=== PATIENT | male | born 1935 | race Hispanic/Latino ===

== ENCOUNTER 2016-10-22 05:59 | Inpatient (IN) | payer MEDICARE, OTHER ==
--- NOTE | 2016-10-17 11:30 | Anesthesia Consultation ---
Anesthesia Consult and Med Hx Date of service: 10/22/16 - Airway Anesthetic Teeth Evaluation: Dentures ROM Head & Neck: Adequate Mental/Hyoid Distance: Adequate Mallampati Class: Class II Intubation Access Assessment: Good - Pulmonary Exam CTA: Yes - Cardiac Exam Cardiac Exam: RRR - Pre-Operative Health Status ASA Pre-Surgery Classification: ASA3 Proposed Anesthetic Plan: Epidural - Pulmonary Hx Smoking: Yes - Cardiovascular System Hx Hypertension: Yes
[~2016-10-22 05:59] MED LIST: VERSED IV NR
[2016-10-22] MEDS ORDERED: ANCEF/STERILE WATER 2 GM/20 ML 20 ML IV NR (06:00)
[2016-10-22] MEDS ORDERED: VERSED IV NR (06:00)
[2016-10-22] MEDS ORDERED: LACTATED RINGERS 1,000 ML IV SCH (06:00)
[2016-10-22] MEDS ORDERED: NACL BACTERIOSTATIC INFILTRATI ONE (06:17)
--- NOTE | 2016-10-22 07:11 | Anesthesia Day of Surgery ---
Anesthesia Day of Surgery - Day of Surgery Patient Examined: Yes Patient H&P Reviewed: Yes Patient is NPO: Yes Beta Blockers: Yes Cardiac Clearance: Yes
[2016-10-22] MEDS ORDERED: ZEMURON IV ONE (07:14)
[2016-10-22] MEDS ORDERED: XYLOCAINE MPF 2% ONE (07:14)
[2016-10-22] MEDS ORDERED: SUBLIMAZE ONE (07:15)
[2016-10-22] MEDS ORDERED: DIPRIVAN 10 MG/ML IV ONE (07:16)
[2016-10-22 07:23] LABS: INR 1.19 (0.87-1.13)
[2016-10-22] MEDS ORDERED: NACL 0.9% 1000 ML ONE (08:00)
[2016-10-22] MEDS ORDERED: HEPARIN 10,000 UNITS/10 ML ONE (08:00)
[2016-10-22] MEDS ORDERED: WATER FOR INJ (PF) ONE (08:00)
[2016-10-22] MEDS ORDERED: ePHEDrine SULFATE ONE (08:18)
[2016-10-22] MEDS ORDERED: NACL 0.9% IR ONE (08:45)
[2016-10-22] MEDS ORDERED: HEPARIN 10,000 UNITS/10 ML 4,000 UNIT in NACL 0.9% 1000 ML 1,000 ML IR ONE (08:45)
[2016-10-22] MEDS ORDERED: DILAUDID IV PRN (09:15)
[2016-10-22] MEDS ORDERED: BLOXIVERZ ONE (09:19)
[2016-10-22] MEDS ORDERED: DECADRON ONE (09:19)
[2016-10-22] MEDS ORDERED: ROBINUL ONE (09:19)
[2016-10-22] MEDS ORDERED: ZOFRAN ONE (09:19)
[2016-10-22] MEDS ORDERED: MARCAINE 0.5% INFILTRATI ONE (09:30)
[2016-10-22] MEDS ORDERED: NEO SYNEPHRINE ONE (09:44)
--- NOTE | 2016-10-22 09:50 | Operative Report ---
Operative Report Operative Report: Date of procedure: 10/22/2016 Pre-operative diagnosis: Left groin swollen mass Post-operative diagnosis: Groin fluid collection. Procedure name(s): 1. Left groin exploration. 2. Evacuation of fluid collection. 3. Resection of fluid capsule. 4. Sartorius muscle flap over the anastomosis. Surgeon: De Kilpatrick MD, [facility] Actuary: Rodrigo Mcwilliams M.D. Anesthesia: Gen. Findings 1. Well incorporated left limb of aortobifemoral bypass graft. 2. Left groin fluid collection that is murky but not clearly purulent. 3. Inflamed fluid capsule. 4. Sartorius muscle over the graft with no tension. Specimens: Left groin fluid. Left groin fluid capsule. Both for cultures. EBL: 30 cc IV fluids: 1 L Urine output: 500 mL Disposition: The recovery Indications: Left groin mass suspicious for false aneurysm or hematoma. Procedure: Patient was brought to the operating room laid on the operating table in supine position. After general tracheal anesthesia was achieved patient was prepped draped in usual sterile fashion. Suprainguinal left groin incision was made transversely. Subcutaneous tissue was divided with Bovie electrocautery. The external oblique aponeurosis was divided sharply with knife. The preperitoneal space was entered by sweeping the preperitoneal contents medially and cephalad. The left limb of aortobifemoral bypass was located. It was found to be well incorporated. It was dissected enough to be able to put a clamp on should one needed. Then, the incision was made below the groin collection using #15 blade. Subcutaneous tissue was divided with Bovie electrocautery. The superficial femoral artery was dissected free and circled with a vessel loop. The incision continued cephalad. It was finally made over the collection. A murky fluid drained out. No blood was seen. The fluid was collected for cultures. The capsule was then dissected free and completely excised. Then anastomosis was found to be well incorporated with no evidence of infection or false aneurysm. No evidence of graft infection or arterial infection was seen. The decision was made not to replace the anastomosis given the fact there was no evidence of infection. The sartorius muscle was then mobilized from lateral to medial and brought over the anastomosis 2-0 Vicryl interrupted sutures without tension. The lower wound was closed using 2-0 Vicryl, 3-0 Vicryl and jay. The external oblique aponeurosis was approximated without tension using 2-0 Vicryl sutures the subcutaneous tissue was closed with 3-0 Vicryl sutures and the skin was closed with Monocryl. Patient received about 8 mL of Marcaine in both incisions prior to closure. At the end of the case all instrument sponge and needle counts were correct. Patient tolerated procedure well.
[2016-10-22] MEDS ORDERED: ZOFRAN IV PRN (09:51)
[2016-10-22] MEDS ORDERED: MORPHINE IV PRN (09:51)
[2016-10-22] MEDS ORDERED: TYLENOL PO PRN (09:51)
[2016-10-22] MEDS ORDERED: LUTEIN 10 MG PO SCH (10:00)
[2016-10-22] MEDS ORDERED: MILK OF MAGNESIA PO PRN (10:00)
--- NOTE | 2016-10-22 10:40 | Admit Criteria Form ---
Admission Criteria Documentation: AMBULATORY SURGERY EXCEPTION CRITERIA Ambulatory Surgery Exception Criteria ( Place 'X' for any and all applicable criteria): Surgery or procedure performed on ambulatory basis may require inpatient stay for[A] ANY ONE of the following(1)(2)(3)(4)(5)(6)(7)(8)(9): [X] I. A preoperative situation, condition, or finding that warrants inpatient stay as indicated by ANY ONE of the following: [] a) Inpatient care needed because of severity of a disease or condition rather than the surgery (eg, severe cardiac or respiratory disease, severe infection) (15) (16 ) (17) (18) [] b) Emergent procedure (eg, angioplasty for acute ischemia)(19) [] c) Complex surgical approach or situation as indicated by ANY ONE of the following(3): [] i) Open approach needed instead of usual endoscopic, transcatheter, or other less invasive procedure [] ii) Difficult approach because of previous operation [] iii) Airway monitoring required after open neck procedures(20)(21) [] iv) Large mass requiring unusually extensive dissection [] v) Additional complicating feature requiring inpatient care (eg, drain management)(22(23): [X] d) Major surgery in a pt with high anesthetic risk as indicated by ANY ONE of the following (2)(3)(5)(7)(8): [X] i) ASA risk class III or higher (severe systemic disease impairing function) [D] [] ii) Advanced age (eg, older than 85 years)(14)(24) [] iii) Symptomatic heart failure(25) [] iv) Symptomatic asthma or COPD(8)(21) [] v) Morbid obesity with hemodynamic or respiratory problems(20)( 21)(26)(27) [] vi) Obstructive sleep apnea(20)(21) [] vii) Former premature infants who are younger than 60 weeks [] viii) High risk for severe postoperative abnormalities (eg, severe postoperative hypocalcemia after parathyroidectomy for severe hyperparathyroidism)(27)( 28) [] ix) Unstable angina(25) [] e) Drug-related risk requiring inpatient stay as indicated by ANY ONE of the following(5)(10)(14)(32)(33) [] i) Procedure requires discontinuing drugs or other therapy (eg , antiarrhythmic medication, antiseizure medication), which necessitates inpatient observation or treatment.(18)(31) [] ii) Major surgery and high risk drug use as indicated by ANY ONE of the following: [] 1) Active abuse of cocaine or similar drug [] 2) Monoamine oxidase inhibitor use [] 3) Other drug identified as posing risk [] f) Inadequate outpatient care situation as indicated by ANY ONE of the following(5)(10)(14)(32)(33) [] i) Patient lives remote from medical facility and procedure has urgent complication potential, and temporary nearby residence cannot be arranged [] ii) Patient will have postprocedure incapacitation and inadequate assistance at home, or alternative level of care cannot be arranged. [] iii) Patient will have long general anesthesia or procedure side effect resolution time, and competent person to stay with patient on first postoperative night at home or alternative level of care cannot be arranged. []iv) Other inadequate outpatient situation that cannot be handled by other means [] II. A perioperative event, condition, or finding that warrants inpatient stay as indicated by ANY ONE of the following (1)(2)(3): [] a) Inadequate physiologic recovery: cardiovascular, respiratory, or hemodynamic status not normal or near preoperative baseline(18) [] b) Hemodynamic instability [] c) Patient not alert with near normal or baseline mental status [] d) Temperature not normal or as expected and not appropriate for outpatient treatment of condition [] e) Ambulatory or appropriate activity level status not yet achieved post procedure [E](34)(35)(36) [] f) Operative site not appropriate (eg, unexpected or excessive drainage or bleeding) [] g) Postoperative effects not resolved or adequately managed (eg, significant pain or vomiting not appropriate for outpatient or next level of care)(10)(12) [] h) Complicating features requiring inpatient care as indicated by ANY ONE of the following(37): [] i) Severe complications of procedure (eg, bowel injury, airway compromise, vascular injury,severe hemorrhage) [] ii) Extensive (eg, dissection far beyond usual scope of procedure ) or prolonged (eg, 120 minutes beyond usual) surgery needed requiring inpatient postoperative care [] iii) Conversion to an open or complex procedure that requires inpatient care (eg, open vs laparoscopic cholecystectomy, abdominal vs vaginal hysterectomy)(38) [] iv) Comorbid condition or test result identified during or post procedure that requires inpatient care (7) [] v) Malignant hyperthermia(30) [] vi) Other complicating feature requiring inpatient care(22)(23) Inpatient stay may be needed until ALL of the following are present (1)(2)(3)(4) (5)(6)(10)(14)(33)(40): []a) Physiologic recovery: cardiovascular, respiratory, and hemodynamic status normal or near preoperative baseline []b) Hemodynamic stability []c) Patient alert, with near normal or baseline mental status []d) Temperature appropriate: patient afebrile or temperature appropriate for outpt treatment of condition []e) Activity level appropriate: ambulatory or appropriate activity level post procedure []f) Operative site appropriate as indicated by ALL of the following: []i) Site dry or with expected drainage []ii) Any blood noted is as expected for procedure. []g) Postoperative effects resolved or managed as indicated by ALL of the following: []i) Pain management appropriate for outpatient (or next level of) care(10) []ii) Minimal nausea and vomiting: if present, successfully treated with oral medication(12) []iii) Headache, dizziness, or drowsiness (if present) are mild. []h) Voiding status acceptable as indicated by ANY ONE of the following: []i) Voiding spontaneously []ii) No voiding but instructions given for follow-up in 6 to 8 hours []iii) Urinary catheter in place, and instructions given for follow-up []i) Complicating features requiring inpatient care manageable at a lower level of care(37) []j) Comorbid conditions manageable at a lower level of care(37) The original [employer] content created by [employer] has been revised. The portions of the content which have been revised are identified through the use of italic text or in bold, and [facility] [employer] has neither reviewed nor approved the modified material. All other unmodified content is copyright [employer] Please see references footnoted in the original [employer] edition 2016 Admission Criteria Met: Yes
[2016-10-22] MEDS ORDERED: DULCOLAX PR PRN (11:00)
[2016-10-22] MEDS: D5/0.45NS 1,000 ML IV SCH ×2 (12:30→22:24)
[2016-10-22] MEDS ORDERED: ANCEF/NS 1 GM/50 ML 50 ML IV SCH (16:00)
--- NOTE | 2016-10-22 17:42 | Consultation ---
History of Present Illness - Reason for Consult Consult date: 10/22/16 left groin infection Requesting physician: KEILA KILPATRICK - History of Present Illness This is an 81 year old man with BPH, CAD s/p cardiac stenting and abdominal aortic aneurysm s/p repair in 2007. Patient reports that he has been getting yearly ultrasounds to evaluate the aneurysm, he reports that bilateral femoral bypass was done as well. He was doing fine until 2-3 months ago he felt a lump in his left groin. He was admitted at [facility] in September for chest pain , while he was there he was seen by Dr. Kilpatrick who was concerned about a possible left groin mass. Patient then seen in the office and it was decided to schedule surgery for 10/22/16. patient underwent left groin exploration, evacuation of fluid collection, and resection of the fluid capsule. Findings included well incorporated left limb of aortobifemoral bypass graft, left groin fluid collection that is murky but no purulence, and inflamed fluid capsule. Patient said he has not been experiencing fevers or chills. Infectious disease consult was called to evaluate Past History Past Medical History: CAD Past Surgical History: appendectomy, abd. aortic aneurysm repair, Other ( cardiac stent) Social history: . denies: smoking (quit many years ago), alcohol abuse Family history: no significant family history Medications and Allergies Allergies Allergy/AdvReac Type Severity Reaction Status Date / Time No Known Allergies Allergy Unverified 10/15/16 10:25 Home Medications Medication Instructions Recorded Confirmed Last Taken Type Aspirin [Adult Low Dose Aspirin EC] 81 mg PO DAILY 10/15/16 10/15/16 Unknown History Ergocalciferol (Vitamin D2) 2,000 unit PO DAILY 10/15/16 10/22/16 10/21/16 09: 00 History [Vitamin D2] Ezetimibe [Zetia] 10 mg PO QDAY 10/15/16 10/15/16 Unknown History Lutein 10 mg PO DAILY 10/15/16 10/22/16 10/21/16 09:00 History Mv,Ca,Min/Iron Fum/FA/Lyco/Lut 1 each PO DAILY 10/15/16 10/22/16 10/21/16 09:00 History [Complete Multi Tablet] Pramipexole Di-HCl [Pramipexole ER] 2.25 mg PO DAILY 10/15/16 10/22/16 10/21/16 12:00 History traMADol [Ultram] 50 mg PO Q8HR PRN 10/15/16 10/15/16 Unknown History Primidone [Mysoline] 50 mg PO TID 10/22/16 10/22/16 10/22/16 04:00 History Active Meds: Active Medications Acetaminophen (Tylenol) 650 mg PO Q4H PRN PRN Reason: Pain MILD(1-3)/Fever >100.5/MCKEON Acetaminophen/Hydrocodone Bitart (Aiken 5/325) 2 each PO Q6H PRN PRN Reason: Pain, Moderate (4-6) Aspirin (Halfprin Ec) 81 mg PO DAILY TALITA Bisacodyl (Dulcolax) 10 mg ME QDAY PRN PRN Reason: Constipation unrelieved by MOM Ezetimibe (Zetia) 10 mg PO QDAY [facility] Enoxaparin Sodium (Lovenox) 40 mg SUB-Q QDAY [facility] Stop: 10/23/16 23:59 Hydromorphone HCl (Dilaudid) 0.5 mg IV Q10MIN PRN PRN Reason: Pain , Severe (7-10) Stop: 10/25/16 09:16 Last Admin: 10/22/16 10:50 Dose: 0.5 mg Lactated Ringer's (Lactated Ringers) 1,000 mls @ 100 mls/hr IV DIRECT TALITA Last Admin: 10/22/16 06:56 Dose: 100 mls/hr Cefazolin Sodium (Ancef/Sterile Water 2 Gm/20 Ml) 20 mls @ 80 mls/hr IV PREOP NR PRN Reason: Protocol Stop: 10/22/16 23:59 Cefazolin Sodium (Ancef/Ns 1 Gm/50 Ml) 50 mls @ 100 mls/hr IV Q8H TALITA PRN Reason: Protocol Dextrose/Sodium Chloride (D5/0.45ns) 1,000 mls @ 75 mls/hr IV DIRECT TALITA Last Admin: 10/22/16 12:30 Dose: 75 mls/hr Magnesium Hydroxide (Milk Of Magnesia) 30 ml PO Q4H PRN PRN Reason: Constipation Midazolam HCl (Versed) 2 mg IV PREOP NR Stop: 10/22/16 23:59 Last Admin: 10/22/16 07:15 Dose: 2 mg Miscellaneous Medication (Ergocalciferol (Vitamin D2) [Vitamin D2]) 2,000 unit PO DAILY [facility] Miscellaneous Medication (Lutein [Lutein]) 10 mg PO DAILY [facility] Miscellaneous Medication (Mv,Ca,Min/Iron Fum/Fa/Lyco/Lut [Complete Multi Tablet] ) 1 each PO DAILY [facility] Miscellaneous Medication (Pramipexole Di-Hcl [Pramipexole Er]) 2.25 mg PO DAILY [facility] Morphine Sulfate (Morphine) 1 mg IV Q1H PRN PRN Reason: Pain , Severe (7-10) Ondansetron HCl (Zofran) 4 mg IV Q8H PRN PRN Reason: N/V unrelieved by Reglan Primidone (Mysoline) 50 mg PO TID [facility] Review of Systems Constitutional: no weight gain, no fever, no chills, no fatigue Ears, nose, mouth and throat: no ear pain, no ear discharge, no dental pain, no mouth pain Cardiovascular: no orthopnea, no palpitations, no shortness of breath, no dyspnea on exertion Respiratory: no cough with sputum, no excessive sputum, no wheezing, no pleurisy Gastrointestinal: no nausea, no vomiting, no diarrhea, no melena, no hematochezia, no loss of appetite Genitourinary Male: no hematuria, no flank pain Rectal: no pain, no incontinence Musculoskeletal: no neck pain, no shooting arm pain, no morning stiffness, no muscle weakness Integumentary: no rash, no pruritis, no sores, no lesions Neurological: no paralysis, no weakness, no headaches, no migraines Psychiatric: no memory loss, no sleep disturbances, no disorientation, no hallucinations Endocrine: no excessive thirst, no flushing, no weight change Physical Examination - Constitutional Vitals: Selected Entries 10/22/16 10/22/16 12:00 16:13 Temperature 97.2 F L 97.4 F L Pulse Rate [ 68 Right Radial] Respiratory 18 Rate O2 Sat by Pulse 95 Oximetry Blood Pressure 123/61 [Right Arm] Blood Pressure 81 Mean [Right Arm ] General appearance: Present: no acute distress, well-nourished - EENT Eyes: Present: PERRL, EOM intact. Absent: scleral icterus, conjunctival injection ENT: hearing intact, clear oral mucosa, dentition normal - Neck Neck: Present: supple, normal ROM - Respiratory Respiratory effort: normal Respiratory: bilateral: CTA - Cardiovascular Rhythm: regular Heart Sounds: Present: S1 & S2 - Extremities Extremities: no ischemia, pulses intact, No edema, normal temperature Peripheral Pulses: within normal limits - Abdominal General gastrointestinal: Present: soft, non-tender, normal bowel sounds Male genitourinary: Present: deferred - Rectal Rectal Exam: deferred - Integumentary Integumentary: Present: clear, warm, dry. Absent: jaundice, rash, clammy - Musculoskeletal Musculoskeletal: strength equal bilaterally - Psychiatric Psychiatric: appropriate mood/affect, cooperative - Additional findings Additional findings: left groin surgical bandages in place Results - Labs Labs: Microbiology 10/22/16 Unknown Groin Surgical Culture - Preliminary Laboratory Tests 10/22/16 06:30 INR 1.19 H Assessment and Plan Antibiotics: Cefazolin preop This is an 81 year old man with CAD, Abdominal aortic aneurysm repair in 2007 presenting here for a planned exploration of the left groin mass. Found to have left groin fluid collection surrounding the well incorporated aortobifemoral bypass graft. Infectious disease was called to evaluate 1) left groin fluid collection in an area of femoral bypass, no gross infection seen. possible abscess. Fluid sent for culture, will treat empirically until results are back 2) Abdominal aorta repair in 2007 Plan: 1) start unasyn 3gm iv Q8H 2) follow up intra-operative culture 3) obtain CRP, BMP, CBC
[2016-10-22 20:46] LABS: Anion Gap 17 mmol/L; Blood Urea Nitrogen 16 mg/dL (9-20); Calcium 8.3 mg/dL (8.4-10.2); Carbon Dioxide 26 mmol/L (22-30); Chloride 104.9 mmol/L (98-107); Glucose 142 mg/dL (75-100); Potassium 4.5 mmol/L (3.6-5.0); Sodium 143 mmol/L (137-145)
[2016-10-22] MEDS ORDERED: HEPARIN SUB-Q SCH (22:00)
[2016-10-22] MEDS ORDERED: PRAMIPEXOLE DI HCL 2.25 MG PO SCH (22:00)
[2016-10-22] MEDS: UNASYN/NS 3 GM/100 ML 100 ML IV SCH (22:24)
[2016-10-23] MEDS: UNASYN/NS 3 GM/100 ML 100 ML IV SCH ×3 (05:15→21:19)
[2016-10-23 09:25] LABS: Basophils % (Auto) 0.5 % (0.0-1.8); Eosinophils % (Auto) 0.8 % (0.0-4.3); Hematocrit 37.8 % (35.5-45.6); Hemoglobin 12.5 gm/dl (11.8-15.2); Mean Corpuscular HGB Conc 33 % (32-34); Mean Corpuscular Hemoglobin 31 pg (28-32); Mean Corpuscular Volume 94 fl (84-94); Platelet Count 175 K/mm3 (140-440); Red Blood Count 4.03 M/mm3 (3.65-5.03); Red Cell Distribution Width 13.8 % (13.2-15.2)
[2016-10-23] MEDS ORDERED: LOVENOX SUB-Q SCH (10:00)
[2016-10-23] MEDS ORDERED: HEPARIN SUB-Q SCH (10:00)
[2016-10-23] MEDS: VITAMIN D3 PO SCH (10:11)
[2016-10-23] MEDS: HALFPRIN EC PO SCH (10:12)
[2016-10-23] MEDS: THERAGRAN Tab PO SCH (10:13)
[2016-10-23] MEDS: ZETIA PO SCH (10:14)
[2016-10-23] MEDS: NORCO 5/325 PO PRN (10:15)
--- NOTE | 2016-10-23 15:43 | Progress Note ---
Assessment and Plan Postoperative day 1. Status post left groin incision and drainage of fluid collection from the area of the left limb overt about femoral bypass graft and sartorius muscle flap. The wound is stable. The cultures are negative for 24 hours. Arias had to be reinserted yesterday. Plan: Continue Unasyn as per ID. Discussed the case was ID today. Even if the cultures are negative will most likely cover empirically for about 6 months. ROGERS nunez. Subjective Date of service: 10/23/16 Principal diagnosis: status post drainage of the fluid collection from site of the graft Interval history: No complaints today Objective - Exam Narrative Exam: Groin dressing clean and dry. - Constitutional Vitals: Vital Signs - 12hr 10/23/16 10/23/16 10/23/16 04:00 08:12 08:31 Temperature 98.6 F 98.0 F Pulse Rate [ 73 77 Left Radial] Respiratory 18 18 Rate Blood Pressure 109/57 110/56 [Left Arm] O2 Sat by Pulse 95 94 95 Oximetry 10/23/16 12:08 Temperature 98.0 F Pulse Rate [ 58 L Left Radial] Respiratory 18 Rate Blood Pressure 113/59 [Left Arm] O2 Sat by Pulse 93 Oximetry - Labs CBC & Chem 7: 10/23/16 09:14 10/22/16 20:03 Labs: Abnormal lab results 10/22/16 10/23/16 Range/Units 20:03 09:14 Seg Neutrophils % 74.5 H (40.0-70.0) % Glucose 142 H (75-100) mg/dL Calcium 8.3 L (8.4-10.2) mg/dL
--- NOTE | 2016-10-23 17:14 | Progress Note ---
Assessment and Plan Antibiotics: Unasyn 3 g IV every 8 hour ( 10/22 -> Vancomycin IV ( 10/23 - > s/p Cefazolin preop This is an 81 year old man with CAD, Abdominal aortic aneurysm repair in 2007 presenting here for a planned exploration of the left groin mass. Found to have left groin fluid collection surrounding the well incorporated aortobifemoral bypass graft. Infectious disease was called to evaluate 1) left groin fluid collection in an area of femoral bypass, no gross infection seen. possible abscess. Fluid sent for culture, will treat empirically until results are back -CRP 1.0 2) Abdominal aorta repair in 2007 Plan: 1) continue unasyn 3gm iv Q8H; Tx with IV vancomycin as well. 2) follow up intra-operative culture ( negative at 24Hr) 3) follow clinically. Subjective Date of service: 10/23/16 Principal diagnosis: status post drainage of the fluid collection from site of the graft Interval history: No specific complaints. Denies left leg pain. Objective - Exam Narrative Exam: Alert. No distress. HEENT: Pupils are equal reactive to light and accommodation. Conjunctiva clear. Oropharynx is normal with no evidence of oral candidiasis or pharyngitis. NECK: Supple. No enlargement of the thyroid gland. No significant cervical lymphadenopathy. No jugular venous distention at 30. LUNGS: Clear with no adventitious sounds. HEART: Regular rate. S1 and S2 are normal. Soft systolic murmur along the left sternal border. ABDOMEN: Soft and nontender. Liver and spleen are not palpably enlarged or tender. No palpable masses. Bowel sounds are normoactive. EXTREMITIES: Left groin dressings in place. No surrounding redness. Left distal leg and foot without swelling or redness. SKIN: No other rash, ulcers or wounds. NEUROLOGIC: No focal findings. - Constitutional Vitals: Vital Signs Temp Pulse Resp BP Pulse Ox 98.0 F 63 18 123/62 96 10/23/16 15:46 10/23/16 15:46 10/23/16 15:46 10/23/16 15:46 10/23/16 15:46 Temperature -Last 24 Hours Temperature 98.0 F Temperature 98.0 F Temperature 98.0 F Temperature 98.6 F Temperature 98.3 F Temperature 97.6 F - Labs CBC & Chem 7: 10/23/16 09:14 10/22/16 20:03 Labs: Abnormal lab results 10/22/16 10/23/16 Range/Units 20:03 09:14 Seg Neutrophils % 74.5 H (40.0-70.0) % Glucose 142 H (75-100) mg/dL Calcium 8.3 L (8.4-10.2) mg/dL
[2016-10-23] MEDS ORDERED: VANCOMYCIN/NS 1 GM/250 ML 250 ML IV ONE (17:15)
[2016-10-23] MEDS: MYSOLINE PO SCH ×2 (17:31→21:17)
[2016-10-23] MEDS: D5/0.45NS 1,000 ML IV SCH (17:33)
[2016-10-23] MEDS: PRAMIPEXOLE DI HCL 0.5 MG PO SCH (21:18)
[2016-10-24] MEDS: NORCO 5/325 PO PRN (03:35)
[2016-10-24] MEDS: UNASYN/NS 3 GM/100 ML 100 ML IV SCH ×3 (05:44→21:26)
[2016-10-24] MEDS: VANCOMYCIN VIAL 1,250 MG in NACL 0.9% 250ML 250 ML IV SCH ×2 (07:00→18:05)
[2016-10-24] MEDS: MYSOLINE PO SCH ×3 (09:23→20:00)
[2016-10-24] MEDS: HALFPRIN EC PO SCH (09:23)
[2016-10-24] MEDS: VITAMIN D3 PO SCH (09:23)
[2016-10-24] MEDS: ZETIA PO SCH (09:24)
[2016-10-24] MEDS: THERAGRAN Tab PO SCH (09:24)
--- NOTE | 2016-10-24 11:19 | Progress Note ---
Assessment and Plan Antibiotics: 1) unasyn 3gm iv Q8H (10/22 2)( vanocmycin (10/23 Previous Antibiotics: Cefazolin preop This is an 81 year old man with CAD, Abdominal aortic aneurysm repair in 2007 presenting here for a planned exploration of the left groin mass. Found to have left groin fluid collection surrounding the well incorporated aortobifemoral bypass graft. Infectious disease was called to evaluate 1) left groin fluid collection in an area of femoral bypass, no gross infection seen. possible abscess. Fluid sent for culture, will treat empirically until results are back --CRP 1.0, all cultures remain negative, if no growth will cover empirically for staph aureus and strep 2) Abdominal aorta repair in 2007 Plan: 1) continue unasyn 3gm iv Q8H 2) follow up intra-operative culture 3) continue vancomycin 4) will decide on outpatient antibiotics tomorrow, giving the culture 1 more day of growth Subjective Date of service: 10/24/16 Principal diagnosis: status post drainage of the fluid collection from site of the graft Interval history: Patient is without new complaints, he does not have groin pain Objective - Constitutional Vitals: Selected Entries 10/24/16 07:00 Temperature 98.2 F Pulse Rate [ 39 L Left Radial] Respiratory 20 Rate O2 Sat by Pulse 97 Oximetry Blood Pressure 111/59 [Left Arm] Blood Pressure 76 Mean [Left Arm] General appearance: Present: no acute distress, well-nourished - EENT Eyes: PERRL, EOM intact, no scleral icterus, no conjunctival injection Ears: bilateral: normal - Neck Neck: supple, normal ROM, no enlarged thyroid, no masses or JVD - Respiratory Respiratory effort: normal Respiratory: bilateral: CTA - Breasts Breasts: deferred - Cardiovascular Rhythm: regular Heart Sounds: Present: S1 & S2 Extremities: no ischemia, pulses intact, No edema - Gastrointestinal General gastrointestinal: Present: soft, non-tender, normal bowel sounds Rectal Exam: deferred - Genitourinary Male genitourinary: deferred - Integumentary Integumentary: clear, warm, dry, no jaundice, no rash - Musculoskeletal Musculoskeletal: strength equal bilaterally - Psychiatric Psychiatric: appropriate mood/affect, cooperative - Additional findings Additional findings: left groin with mild swelling, surgical dressings in place - Labs CBC & Chem 7: 10/23/16 09:14 10/22/16 20:03 Labs: Microbiology 10/22/16 Unknown Groin Surgical Culture - Preliminary 10/22/16 Unknown Groin Anaerobic Culture - Preliminary Laboratory Tests 10/22/16 10/23/16 20:03 09:14 WBC 10.0 Creatinine 0.8 Estimated GFR > 60
--- NOTE | 2016-10-24 16:39 | Progress Note ---
Assessment and Plan Await surgical culture results to direct antibiotic therapy per the infectious disease recommendations. Patient has underlying BPH. His Arias was removed postoperatively and required reinsertion due to urinary retention. It once again was removed last night at midnight, by this morning he voided minimally and was noted to have 800 mL of urine in his bladder by bladder scan. The Arias was replaced. We'll start Flomax. Patient will need to be discharged with a leg bag and follow-up with his urologist next week for reevaluation. Subjective Date of service: 10/24/16 Principal diagnosis: status post drainage of the fluid collection from site of the graft Interval history: Patient is awake and alert without specific complaint at present. Objective - Constitutional Vitals: Vital Signs - 12hr 10/24/16 10/24/16 07:00 11:00 Temperature 98.2 F 97.5 F L Pulse Rate [ 60 Dorsalis Pedis] Pulse Rate [ 39 L Left Radial] Respiratory 20 20 Rate Blood Pressure 111/59 127/68 [Left Arm] O2 Sat by Pulse 97 97 Oximetry General appearance: Present: no acute distress - EENT Eyes: EOM intact ENT: hearing intact - Neck Neck: supple - Respiratory Respiratory effort: normal Extremities: no ischemia, pulses intact, normal temperature, abnormal (with groin bandage removed, jay in place, no erythema or drainage appreciated.) - Neurologic Neurologic: no focal deficits - Psychiatric Psychiatric: appropriate mood/affect, intact judgment & insight, cooperative - Labs CBC & Chem 7: 10/23/16 09:14 10/22/16 20:03
[2016-10-24] MEDS: FLOMAX PO SCH (18:03)
[2016-10-24] MEDS: PRAMIPEXOLE DI HCL 0.5 MG PO SCH (21:21)
[2016-10-25] MEDS: D5/0.45NS 1,000 ML IV SCH (03:05)
[2016-10-25] MEDS: UNASYN/NS 3 GM/100 ML 100 ML IV SCH ×2 (05:12→13:51)
--- NOTE | 2016-10-25 09:21 | Progress Note ---
Assessment and Plan Antibiotics: 1) unasyn 3gm iv Q8H (10/22 2)( vanocmycin (10/23 Previous Antibiotics: Cefazolin preop This is an 81 year old man with CAD, Abdominal aortic aneurysm repair in 2007 presenting here for a planned exploration of the left groin mass. Found to have left groin fluid collection surrounding the well incorporated aortobifemoral bypass graft. Infectious disease was called to evaluate Pathology report: benign fibroadipose tissue with numerous macrophages, foreign body giant cells and hemorrhage 1) left groin fluid collection in an area of femoral bypass, no gross infection seen. possible abscess. Fluid sent for culture, will treat empirically until results are back --CRP 1.0, all cultures remain negative, if no growth will cover empirically for staph aureus and strep --in view of negative cultures, pathology report without guidance will treat empirically for suspected infection 2) Abdominal aorta repair in 2007 Plan: 1) continue unasyn 3gm iv Q8H and vancomycin while hospitalized 2) follow up intra-operative culture, negative 3) discharge home with doxycycline 100mg po Q12H, anticipate 3-6months of treatment in view of aortobifermoral bypass graft Subjective Date of service: 10/25/16 Principal diagnosis: status post drainage of the fluid collection from site of the graft Interval history: Patient is doing well, he has no new complaints. He is requesting to go home Objective - Constitutional Vitals: Selected Entries 10/25/16 10/25/16 08:00 08:59 Temperature 97.9 F Pulse Rate [ 50 L Dorsalis Pedis] Respiratory 18 Rate Blood Pressure 130/72 [Left Arm] Blood Pressure 91 Mean [Left Arm] General appearance: Present: no acute distress, well-nourished - EENT Eyes: PERRL, EOM intact, no scleral icterus, no conjunctival injection ENT: hearing intact, clear oral mucosa, dentition normal, no oropharyngeal erythema - Neck Neck: supple, normal ROM - Respiratory Respiratory effort: normal Respiratory: bilateral: CTA - Breasts Breasts: deferred - Cardiovascular Rhythm: regular Heart Sounds: Present: S1 & S2 Extremities: no ischemia, pulses intact, No edema, Full ROM - Gastrointestinal General gastrointestinal: Present: soft, non-tender, normal bowel sounds Rectal Exam: deferred - Genitourinary Male genitourinary: deferred - Integumentary Integumentary: clear, warm, dry - Musculoskeletal Musculoskeletal: strength equal bilaterally - Labs CBC & Chem 7: 10/23/16 09:14 10/22/16 20:03 Labs: Microbiology 10/22/16 Unknown Groin Surgical Culture - Preliminary 10/22/16 Unknown Groin Anaerobic Culture - Preliminary Laboratory Tests 10/22/16 10/22/16 10/23/16 06:30 20:03 09:14 WBC 10.0 INR 1.19 H Creatinine 0.8
[2016-10-25] MEDS: THERAGRAN Tab PO SCH (10:33)
[2016-10-25] MEDS: ZETIA PO SCH (10:33)
[2016-10-25] MEDS: FLOMAX PO SCH (10:33)
[2016-10-25] MEDS: VITAMIN D3 PO SCH (10:34)
[2016-10-25] MEDS: MYSOLINE PO SCH ×2 (10:34→13:50)
[2016-10-25] MEDS: HALFPRIN EC PO SCH (10:34)
[2016-10-25 13:32] VITALS: BP 139/66
--- NOTE | 2016-10-25 16:39 | Discharge Summary ---
Providers - Providers Date of Admission: 10/22/16 05:59 Date of discharge: 10/25/16 Attending physician: DE KILPATRICK 10/22/16 09:51 Consult to Physician [CONS] Routine Consulting Provider: MAGALI ANDERSON Reason For Exam: posible low level graft infection Place consult to:: Infectious disease Notified:: y Was contact made?: Yes If yes, spoke with:: Dr Anderson. Time called:: 10:00 Primary care physician: LEOPOLDO DE LEON Hospitalization Reason for admission: Mass at the left femoral aortobifemoral bypass site Condition: Stable Procedures: Date of procedure: 10/22/2016 Pre-operative diagnosis: Left groin swollen mass Post-operative diagnosis: Groin fluid collection. Procedure name(s): 1. Left groin exploration. 2. Evacuation of fluid collection. 3. Resection of fluid capsule. 4. Sartorius muscle flap over the anastomosis. Surgeon: De Kilpatrick MD, RPVI [facility] Therapist: Rodrigo Mcwilliams M.D. Anesthesia: Gen. Findings 1. Well incorporated left limb of aortobifemoral bypass graft. 2. Left groin fluid collection that is murky but not clearly purulent. 3. Inflamed fluid capsule. 4. Sartorius muscle over the graft with no tension. Specimens: Left groin fluid. Left groin fluid capsule. Both for cultures. EBL: 30 cc IV fluids: 1 L Urine output: 500 mL Disposition: The recovery Indications: Left groin mass suspicious for false aneurysm or hematoma. Procedure: Patient was brought to the operating room laid on the operating table in supine position. After general tracheal anesthesia was achieved patient was prepped draped in usual sterile fashion. Suprainguinal left groin incision was made transversely. Subcutaneous tissue was divided with Bovie electrocautery. The external oblique aponeurosis was divided sharply with knife. The preperitoneal space was entered by sweeping the preperitoneal contents medially and cephalad. The left limb of aortobifemoral bypass was located. It was found to be well incorporated. It was dissected enough to be able to put a clamp on should one needed. Then, the incision was made below the groin collection using #15 blade. Subcutaneous tissue was divided with Bovie electrocautery. The superficial femoral artery was dissected free and circled with a vessel loop. The incision continued cephalad. It was finally made over the collection. A murky fluid drained out. No blood was seen. The fluid was collected for cultures. The capsule was then dissected free and completely excised. Then anastomosis was found to be well incorporated with no evidence of infection or false aneurysm. No evidence of graft infection or arterial infection was seen. The decision was made not to replace the anastomosis given the fact there was no evidence of infection. The sartorius muscle was then mobilized from lateral to medial and brought over the anastomosis 2-0 Vicryl interrupted sutures without tension. The lower wound was closed using 2-0 Vicryl, 3-0 Vicryl and jay. The external oblique aponeurosis was approximated without tension using 2-0 Vicryl sutures the subcutaneous tissue was closed with 3-0 Vicryl sutures and the skin was closed with Monocryl. Patient received about 8 mL of Marcaine in both incisions prior to closure. At the end of the case all instrument sponge and needle counts were correct. Patient tolerated procedure well. 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 Patient was brought to the operating room and control was obtained of the aortobifemoral bypass, but after evaluation of the mass, it was determined to represent a fluid collection adjacent to the aortobifemoral bypass. It was drained. Cultures were obtained. Site was closed. Microbiological analysis demonstrates no growth at time of discharge. Infectious disease was consult and it was determined to place the patient on doxycycline for 6 months. The patient had inability to urinate requiring Arias placement 2, and finally required a Arias placement which will be kept upon discharge. Patient was started on Flomax. Patient will follow up with his urologist in 1 week at [facility]. Patient will follow up with infectious disease associates in 1-2 weeks. Patient will follow up with [facility] vascular associates in 1-2 weeks. Both of his limbs remain viable throughout his hospitalization and his left groin incision had minimal drainage. Disposition: DISCHARGED TO HOME OR SELFCARE Time spent for discharge: 45 min - Discharge Diagnoses (1) Fluid collection at surgical site Status: Acute (2) S/P aortobifemoral bypass surgery Status: Acute (3) Urinary (tract) obstruction Status: Acute Core Measure Documentation - Palliative Care Palliative Care/ Comfort Measures: Not Applicable - Core Measures Any of the following diagnoses?: none - VTE Discharge Requirements Deep Vein Thrombosis/Pulmonary Embolism Present on Admission: No Exam - Constitutional Vitals: Temp Pulse Resp BP Pulse Ox 97.9 F 73 18 139/66 96 10/25/16 12:00 10/25/16 12:00 10/25/16 12:00 10/25/16 12:00 10/25/16 12:00 General appearance: Present: no acute distress - EENT Eyes: Present: EOM intact ENT: hearing intact - Respiratory Respiratory effort: normal - Extremities Extremities: pulses intact (palpable pedal pulses), normal temperature, normal color Extremity abnormal: other (left groin c/d/i ; staple line intact) - Psychiatric Psychiatric: appropriate mood/affect, cooperative Plan Activity: advance as tolerated Weight Bearing Status: Weight Bear as Tolerated Diet: regular Wound: keep clean and dry, other (can let water wash over wound in shower, do not soak left groin in water) Prescriptions: Tamsulosin [Flomax] 0.4 mg PO QDAY #30 cap HYDROcodone/APAP 5-325 [[place] 5/325] 1 - 2 each PO Q6HR PRN #60 tablet PRN Reason: Pain Doxycycline [Vibramycin CAP] 100 mg PO BID #60 capsule
[2016-10-25] MEDS ORDERED: ULTRAM PO PRN (16:47)
--- NOTE | 2016-10-25 17:08 | Progress Note ---
Assessment and Plan consult dictated needs f/u dr elizabeth as out pt home with riggins to leg bag Subjective Date of service: 10/25/16 Principal diagnosis: status post drainage of the fluid collection from site of the graft,, AUR Objective - Constitutional Vitals: Vital Signs - 12hr 10/25/16 10/25/16 10/25/16 08:00 08:59 12:00 Temperature 97.9 F 97.9 F Pulse Rate [ 50 L 73 Dorsalis Pedis] Respiratory 18 18 18 Rate Blood Pressure 130/72 139/66 [Left Arm] O2 Sat by Pulse 94 96 Oximetry - Labs CBC & Chem 7: 10/23/16 09:14 10/22/16 20:03
--- NOTE | 2016-10-26 02:30 | Consultation ---
HISTORY OF PRESENT ILLNESS: The patient is an 81-year-old gentleman who has a history of prostatism. He has not seen Dr. Bailey in over a year and a half. He underwent cardiac stenting, abdominal aortic aneurysm repair in 2007, and he had swelling in the groin with inflammatory fluid filled mass which was drained and he had some sort of grafting with muscle flap. He is doing well, but postoperative catheter was removed at least twice, he could not void and a large residual was obtained. His urine is clear. PAST MEDICAL HISTORY: BPH, vascular disease. PAST SURGICAL HISTORY: Appendectomy, aortic aneurysm repair. FAMILY HISTORY: Noncontributory. SOCIAL HISTORY: Previous smoker years ago. ALLERGIES: Negative. MEDICATIONS: He is on Ultram, aspirin. REVIEW OF SYSTEMS: Weak flow, straining to void for quite some time, but did not follow up. PHYSICAL EXAMINATION: GENERAL: He is awake. He is in no distress. ABDOMEN: Soft, nondistended. No guarding or rebound. There is a left groin incision linear up and down, healing well with some mild ecchymosis. GENITALIA: Mildly atrophic testes. No hernias, uncircumcised with a catheter draining freely clear urine. DIGITAL RECTAL EXAM: Smooth prostate with some asymmetry with larger right lobe than the left. IMPRESSION: Prostatism years. He needs to follow up with Dr. Bailey. He goes home with his Arias and Flomax and will be seen in the office within the next week. JOB# [id number] RICK/[place]
== END 2016-10-25 17:58 | disposition home or self-care (01) | DRG 581 ==
LOC: 3A 05:59 → 4A 15:28
PROVIDERS: ADMIT Surgery Vascular Surgery; ATTEND Surgery Vascular Surgery
PROC: 0J9M0ZZ Drainage of Left Upper Leg Subcutaneous Tissue and Fascia, Open Approach (ICD-10-PCS; principal; 2016-10-22)
PROC: 0KXR0ZZ Transfer Left Upper Leg Muscle, Open Approach (ICD-10-PCS; 2016-10-22)
DX: L02.214 Cutaneous abscess of groin (principal); N40.0 Benign prostatic hyperplasia without lower urinary tract symptoms; I25.10 Atherosclerotic heart disease of native coronary artery without angina pectoris; I72.9 Aneurysm of unspecified site; N13.9 Obstructive and reflux uropathy, unspecified; Z90.49 Acquired absence of other specified parts of digestive tract; Z79.82 Long term (current) use of aspirin; Z98.890 Other specified postprocedural states
CPT/HCPCS: 36415; 36620; 80048; 85025; 85610; 86140; 86850; 86900; 86901; 87075; 87116; 88304; 88305; J0295; J0690; J1100; J1170; J1644; J1650; J2250; J2370; J2405; J2704; J2710; J3010; J3370; J7030; J7050; J7120